=== PATIENT | female | born 1950 | race Caucasian/White ===

== ENCOUNTER 2018-10-20 14:23 | Emergency (ER) | payer OTHER ==
[~2018-10-20] VITALS: Ht 165.1 cm; Wt 44.5 kg
[~2018-10-20 14:23] MED LIST: ADVAIR 500-501 EACH INH; ADVAIR HFA 230M12 GM INH; COLACE100 MG PO; HYDROCODONE-AP1 EAC6 PO; IBUPROFEN 200200 M1 PO; MAGOX 400400 MG PO; MIRALAX17 GM PO; NORCO 5-325 TA1 EACH PO; PERCOCET 5-3251 EACH PO; VENTOLIN HFA 1818 GM INH; XANAX 0.5 MG0.5 MG PO; ZOFRAN ODT4 MG SUBLING
[2018-10-20] MEDS ORDERED: ZANTAC 150MG T150 MG PO (14:36)
[2018-10-20 15:13] LABS: ABSOLUTE EOSINOPHILS 0.1 thou/uL (0.0-0.7); ABSOLUTE MONOCYTES 0.3 thou/uL (0.0-1.2); ABSOLUTE NEUTROPHILS 3.3 thou/uL (1.6-8.1); BASOPHILS 0.7 %; EOSINOPHILS 1.6 %; HEMATOCRIT 41.9 % (37.0-47.0); LYMPHOCYTES 21.9 %; MCH 32.2 pg (26.0-34.0); MCHC 33.5 g/dL (28.0-37.0); MCV 96.2 fL (80.0-100.0); MONOCYTES 6.3 %; MPV 7.4 fl. (7.2-11.1); NUCLEATED RBCS 0 /100WBC; PLATELET COUNT* 281 thou/uL (150-400); POLYS 69.5 %; RBC 4.35 mil/uL (4.20-5.00); RDW-CV 14.4 % (10.5-14.5); WBC 4.7 thou/uL (4.0-11.0)
[2018-10-20 15:41] LABS: ALBUMIN 3.3 g/dL (3.4-5.0); CALCIUM 8.5 mg/dL (8.5-10.1); CREATININE 0.7 mg/dL (0.6-1.3); POTASSIUM 4.3 mmol/L (3.5-5.1); TOTAL BILIRUBIN 0.1 mg/dL (<0.1-1.0); TOTAL PROTEIN 6.3 g/dL (6.4-8.2)
[2018-10-20 15:44] LABS: URINE BILIRUBIN NEGATIVE (Negative); URINE BLOOD NEGATIVE (Negative); URINE CLARITY CLEAR; URINE COLOR YELLOW; URINE GLUCOSE-RANDOM NEGATIVE (Negative); URINE KETONES NEGATIVE (Negative); URINE LEUKOCYTES-REFLEX 1+ (Negative); URINE NITRITE-REFLEX NEGATIVE (Negative); URINE PROTEIN NEGATIVE (Negative); URINE SPECIFIC GRAVITY <= 1.005 (1.005-1.030); URINE UROBILINOGEN 0.2 E.U./dl (0.2-1.0)
[2018-10-20 15:50] LABS: BACTERIA-REFLEX None Seen /HPF (None Seen); CASTS None Seen /LPF (None Seen); CRYSTALS None Seen /LPF (None Seen); SQUAMOUS 0-3 Few /LPF (0-3); URINE RBC None Seen /HPF (0-2); URINE WBC-REFLEX None Seen /HPF (0-5)
[2018-10-20] MEDS ORDERED: CYCLOBENZAPRINE5 MG PO (16:27)
[2018-10-20] MEDS ORDERED: MEDROL DOSPAK21 TA1 PO (16:27)
[2018-10-20 16:50] VITALS: BP 130/101
== END 2018-10-20 16:50 | disposition home or self-care (01) ==
LOC: M.ERS 14:23
PROVIDERS: Nurse Practitioner Family
DX: M79.18 Myalgia, other site (principal); M54.9 Dorsalgia, unspecified; R10.9 Unspecified abdominal pain; J44.9 Chronic obstructive pulmonary disease, unspecified; F41.9 Anxiety disorder, unspecified; F32.9 Major depressive disorder, single episode, unspecified

== ENCOUNTER → 2019-02-14 | Outpatient (CLI) | payer OTHER ==
[~2019-02-14] MED LIST changes: +CYCLOBENZAPRINE5 MG PO; +MEDROL DOSPAK21 TA1 PO; +ZANTAC 150MG T150 MG PO
== END ==
LOC: M.ULTRA 11:05
DX: R11.0 Nausea (principal)

== ENCOUNTER → 2019-03-12 | Outpatient (CLI) | payer OTHER | LOC: M.NUC 03-07 07:30 | DX: R68.81 Early satiety (principal); R11.2 Nausea with vomiting, unspecified; R10.9 Unspecified abdominal pain ==

== ENCOUNTER 2021-04-04 15:58 | Inpatient (IN) | payer MEDICARE ==
[~2021-04-04] VITALS: Ht 162.6 cm; Wt 45.8 kg
--- NOTE | ~2021-04-04 | H ---
[address] [address] HISTORY AND PHYSICAL Name: MERLYNDOREEN ROSA Room: [address] [facility]#: [id number] Admission: 04/04/21 Attend Phys: Viet Flynn Discharge: 04/04/21 Date of : 48 Report #: [id number] THIS REPORT FOR: cc: Lucas Pennington MD, Meng MD [facility],Medical Records Staff ~ Patient was here less than 24 hour please refer to the emergency room summary. By: 0646Medical Records Staff SANDY /DANIEL
[2021-04-04 16:12] VITALS: BP 155/76
[2021-04-04] MEDS ORDERED: FAMOTIDINE 10 M10 MG PO (16:17)
[2021-04-04 16:46] LABS: ABSOLUTE LYMPHOCYTES 1.1 thou/uL (0.8-5.3); ABSOLUTE MONOCYTES 0.3 thou/uL (0.0-1.2); ABSOLUTE NEUTROPHILS 4.2 thou/uL (1.6-8.1); BASOPHILS 0.4 %; EOSINOPHILS 0.7 %; HEMATOCRIT 44.7 % (37.0-47.0); HEMOGLOBIN 15.1 gm/dL (12.0-15.0); LYMPHOCYTES 19.4 %; MCHC 33.9 g/dL (28.0-37.0); MCV 94.5 fL (80.0-100.0); MONOCYTES 5.1 %; MPV 6.1 fl. (7.2-11.1); NUCLEATED RBCS 0 /100WBC; PLATELET COUNT* 331 thou/uL (150-400); POLYS 74.4 %; RBC 4.73 mil/uL (4.20-5.00); RDW-CV 15.8 % (10.5-14.5); WBC 5.6 thou/uL (4.0-11.0)
[2021-04-04 16:54] LABS: CALCIUM 9.2 mg/dL (8.5-10.1); CREATININE 0.7 mg/dL (0.6-1.3)
[2021-04-04 17:07] LABS: ALBUMIN 4.3 g/dL (3.4-5.0); TOTAL BILIRUBIN 0.3 mg/dL (<0.1-1.0); TOTAL PROTEIN 7.6 g/dL (6.4-8.2)
[2021-04-04] MEDS ORDERED: PREDNISONE 20 M20 M1 PO ×2 (17:12→17:22)
[2021-04-04] MEDS ORDERED: ZPAK PO (17:12)
[2021-04-04] MEDS ORDERED: HYDROCODON-ACE1 EAC7 PO (17:22)
[2021-04-04] MEDS ORDERED: VENTOLIN HFA 1818 GM INH (17:22)
[2021-04-04] MEDS ORDERED: AUGMENTIN 875-1 EACH PO (17:22)
[2021-04-04 18:11] VITALS: BP 143/72
--- NOTE | 2021-04-05 13:47 | EKG ---
[place] [address] ELECTROCARDIOGRAM REPORT Name: DOREEN ZULETA Room: [place] [address] DIS [place] .R.#: [id number] Admission: 04/04/21 Attend Phys: Raz Berry Discharge: 04/04/21 Date of : 48 Date of Service: 04/04/21 1615 Report #: [id number] THIS REPORT FOR: //name// [facility] ED Test Date: 2021-04-04 Test Time: 16:15:28 Pat Name: DOREEN ZULETA Department: Room: [facility] Gender: F Systems Design Engineer: JAQUAN : 1950 Requested By: Ibrahima Thurston Order Number: [id number] MD: Gelacio Vasquez Measurements Intervals [place] Rate: 78 P: 88 LA: 192 QRS: 80 QRSD: 118 T: 45 QT: 442 QTc: 504 Interpretive Statements Sinus rhythm artifact noted Probable left atrial enlargement Nonspecific intraventricular conduction delay Abnormal T, consider ischemia, lateral leads Compared to ECG 02/06/2016 13:35:53 Intraventricular conduction delay now present T-wave abnormality now present Electronically Signed On 04-05-2021 13:47:42 CDT by Gelacio Vasquez [email or web address] <ELECTRONICALLY SIGNED> By: Gelacio Vasquez MD, [facility] 04/05/21 1347 1615 1615 Gelacio Vasquez MD, [facility] /EPI
== END 2021-04-04 17:50 | disposition home or self-care (01) | DRG 313 ==
LOC: M.ERS 15:58 → M.TBA-ER 16:22
PROVIDERS: Family Medicine; ADMIT Internal Medicine; ATTEND Internal Medicine
DX: R07.9 Chest pain, unspecified (principal); J44.0 Chronic obstructive pulmonary disease with (acute) lower respiratory infection; F41.9 Anxiety disorder, unspecified; F32.9 Major depressive disorder, single episode, unspecified; J20.9 Acute bronchitis, unspecified; Z87.891 Personal history of nicotine dependence

== ENCOUNTER 2021-07-07 08:10 | Observation (INO) | payer MEDICARE ==
[~2021-07-07] VITALS: Ht 157.5 cm; Wt 49.7 kg
--- NOTE | ~2021-07-07 | OP ---
[address] [address] OPERATIVE REPORT Name: DOREEN ZULETA Room: [employer].#: [id number] Admission: 07/07/21 Attend Phys: Myke Lemons DO Discharge: Date of : 48 Report #: [id number] THIS REPORT FOR: cc: Ray Lara MD, Bruce D. MD Kramer, Adam P. DO ~ DATE OF SURGERY: 07/07/2021 PREOPERATIVE DIAGNOSIS: Ventral hernia. POSTOPERATIVE DIAGNOSIS: Incarcerated ventral hernia. SURGEON: Myke Lemons DO CO-SURGEON: Clayton Loredo DO PGY5 SENIOR SOFTWARE TESTER: , MS3. OPERATION PERFORMED: Ventral hernia repair with 6.[address] alturas mesh. TYPE OF ANESTHESIA: General. ESTIMATED BLOOD LOSS: 10 mL SPECIMEN: Hernia sac. COMPLICATIONS: None. HISTORY OF PRESENT ILLNESS: The patient is a 71-year-old female with a history of an umbilical hernia repair by Dr. Lemons in the past. She presented to the office with complaint of a bulge above her previous repair site. It did appear that she did have another epigastric hernia that we discussed repairing. The risks, benefits and alternatives were discussed at length and she agreed to proceed with surgery. DESCRIPTION OF PROCEDURE: After consent was obtained, the patient was taken to the operating room and placed in supine position. SCDs to bilateral lower extremities. The patient was safety belted to the bed. Two grams of Ancef given for surgical prophylaxis. General anesthesia was administered. The patient was then prepped and draped in the standard sterile fashion. Timeout was performed confirming patient and procedure. A #15 blade scalpel was used to make a 4 cm incision just above the area of the herniation. Electrocautery used for hemostasis and to dissect down to the level of the hernia. Once the hernia was encountered, it was circumferentially freed from the subcutaneous tissues down to the level of fascia. At the level of fascia, [place] [address] OPERATIVE REPORT Name: DOREEN ZULETA Room: [employer].#: [id number] Admission: 07/07/21 Attend Phys: Myke Lemons DO Discharge: Date of : 48 Report #: [id number] circumferentially around the hernia sac and the hernia contents were inverted back into the abdomen. Hernia sac was sent for pathologic evaluation. Finger sweep was performed to ensure no anterior abdominal wall adhesions. Once there was a clear plane for mesh placement, we placed a 6.[address] mesh into the abdomen. Mesh was secured to the fascia using interrupted sutures of 0 Prolene. Once the mesh was completely fixed to the abdominal wall, the overlying fascia was closed, subcutaneous tissue reapproximated with 3-0 Vicryl, skin reapproximated with 4-0 Monocryl in a running fashion. Skin glue applied to the incision. All needle, instrument and sponge counts were correct x2 at the end of the case. There was no evidence of further herniation. The patient was then awoken from general anesthesia and transferred to PACU in stable condition. By: [id number] Lemons DO /nt
[~2021-07-07 08:10] MED LIST changes: +ACETAMINOPHEN500 M1 PO; +AUGMENTIN 875-1 EACH PO; +CALCIUM CARBON650 MG PO; +FAMOTIDINE 10 M10 MG PO; +HYDROCODON-ACE1 EAC7 PO; +PREDNISONE 20 M20 M1 PO; +ZOFRAN4 MG PO; +ZPAK PO
[2021-07-07 08:54] LABS: HEMATOCRIT 42.8 % (37.0-47.0); HEMOGLOBIN 14.3 gm/dL (12.0-15.0); MCH 31.7 pg (26.0-34.0); MCHC 33.5 g/dL (28.0-37.0); MCV 94.6 fL (80.0-100.0); MPV 6.3 fl. (7.2-11.1); RBC 4.52 mil/uL (4.20-5.00); RDW-CV 13.9 % (10.5-14.5); WBC 3.9 thou/uL (4.0-11.0)
[2021-07-07 09:07] LABS: CALCIUM 9.4 mg/dL (8.5-10.1); CREATININE 0.5 mg/dL (0.6-1.3); POTASSIUM 4.1 mmol/L (3.5-5.1)
[2021-07-07] MEDS ORDERED: OXYCODONE HCL 55 MG PO (11:06)
[2021-07-07 20:47] VITALS: BP 128/77
[2021-07-08 00:36] VITALS: BP 136/81
--- NOTE | 2021-07-08 05:01 | NUR ---
ASSUMED PT CARE AT 1930. PT ALERT AND ORIENTED X4, POLITE AND COOPERATIVE WITH CARES. PT ON 2L 02 PER NC AND CONTINUOUS PULSE OX. PT UP WITH ONE TO BATHROOM TO VOID. SL TO RIGHT FOREARM INTACT. PRN ZANAX X2 PER PT REQUEST. MIDLINE ABDOMINAL INCISION INTACT, SECURED WITH DURABOND. SCHEDULED TYLENOL FOR PAIN. CALL LIGHT IN REACH, BED ALARM ON FOR SAFETY. HOURLY ROUNDING IN PROGRESS, WILL CONTINUE TO MONITOR.
[2021-07-08 08:47] VITALS: BP 113/74
--- NOTE | 2021-07-08 11:50 | NUR ---
ASSUMED PT CARE AT 0730. PT IS PLEASANTLY A&O X4. ASSESSMENT COMPLETED. PT APPEARS A LITTLE ANXIOUS, PRN XANAX ADMINISTERED ORDERED. PT DENIES ANY PAIN OR DISCOMFORT. MEDICATION ADMINISTERED ORDERED. NEW ORDER TO DISCHARGE PT TO HOME. DISCHARGE ORDERS REVIEWED WITH PT AND PT VERBALIZES UNDERSTANDING. DAUGHTER HERE TO TRANSPORT PT TO HOME AT APPROX 1200. ALL BELONGINGS WITH PT.
== END 2021-07-08 13:20 | disposition home or self-care (01) ==
LOC: M.SUR 08:10 → M.TBA-CV 15:42 → M.2W 19:58
PROVIDERS: Anesthesiology; ADMIT Surgery; ATTEND Surgery
DX: K43.9 Ventral hernia without obstruction or gangrene (principal); Z20.822 Contact with and (suspected) exposure to COVID-19